=== PATIENT | female | born 1975 | race Hispanic/Latino ===

== ENCOUNTER 2019-01-08 03:45 | Emergency (ER) | payer OTHER ==
[2019-01-08] MEDS ORDERED: LIDOCAINE HCL 2% VISCOUS 15 ML UDCUP ONE (04:10)
[2019-01-08] MEDS ORDERED: MAG HYDROX/AL HYDROX/SIMETH ES 30 ML SUSP UDCUP ONE (04:10)
[2019-01-08] MEDS ORDERED: PANTOPRAZOLE SODIUM 40 MG TABLET.DR PO ONE (04:11)
== END 2019-01-08 04:32 | disposition home or self-care (01) ==
LOC: EDH 03:45
DX: B35.6 Tinea cruris (principal); R10.13 Epigastric pain; E07.9 Disorder of thyroid, unspecified; Z98.51 Tubal ligation status

== ENCOUNTER 2019-07-27 22:10 | Emergency (ER) | payer OTHER ==
[2019-07-27] MEDS ORDERED: MAG HYDROX/AL HYDROX/SIMETH ES 30 ML SUSP UDCUP ONE (23:20)
[2019-07-27] MEDS ORDERED: LIDOCAINE HCL 2% VISCOUS 15 ML UDCUP ONE (23:20)
[2019-07-27 23:22] LABS: RAPID GROUP A STREP NEGATIVE (NEGATIVE)
== END 2019-07-27 23:48 | disposition home or self-care (01) ==
LOC: EDH 22:10
DX: J06.9 Acute upper respiratory infection, unspecified (principal)
CPT/HCPCS: 87804; 87880

== ENCOUNTER 2020-04-22 09:05 | Emergency (ER) | payer SELFPAY ==
[2020-04-22] MEDS ORDERED: HYDROCODONE/ACETAMINOPHEN 5/325 MG TAB ONE (09:56)
== END 2020-04-22 10:54 | disposition home or self-care (01) ==
LOC: EDH 09:05
DX: M25.461 Effusion, right knee (principal)
CPT/HCPCS: 73562; 81025

== ENCOUNTER 2021-09-05 11:27 | Emergency (ER) | payer SELFPAY ==
[~2021-09-05] VITALS: Ht 160 cm; Wt 99.8 kg
[2021-09-05] MEDS ORDERED: D-ME1POW16 PO (15:41)
[2021-09-05 15:53] VITALS: BP 152/99
[2021-09-05] MEDS ORDERED: IBUPROFEN 800 MG TAB PO ONE (16:00)
[2021-09-05] MEDS ORDERED: APAP/CODEINE 120/12MG 5ML PO ONE (16:00)
== END 2021-09-05 16:12 | disposition home or self-care (01) ==
LOC: EDH 11:27
DX: J06.9 Acute upper respiratory infection, unspecified (principal); Z20.822 Contact with and (suspected) exposure to COVID-19; E66.9 Obesity, unspecified; Z68.39 Body mass index [BMI] 39.0-39.9, adult
CPT/HCPCS: 87635; 87804 ×2; 99283; C9803

== ENCOUNTER 2024-08-09 18:02 | Emergency (ER) | payer SELFPAY ==
[~2024-08-09] VITALS: Ht 160 cm; Wt 97.5 kg
[~2024-08-09 18:02] MED LIST: D-ME1POW16 PO
--- NOTE | 2024-08-09 18:31 | ERN ---
ED Note History of Present Illness Stated Complaint: DYSURIA, FREQUENCY Chief Complaint: Urinary Frequency Time Seen by MD: 18:05 Time Seen by Midlevel: 18:05 Dictation: The patient is a 48-year-old female with a history of hypothyroidism who presents to the emergency department with complaints of burning urination and suprapubic pain onset three days ago. Patient also reports she has been having some upper respiratory symptoms, reports dry cough, nasal congestion. Patient denies any nausea, vomiting, diarrhea, fevers, shortness of breath Allergies: Coded Allergies: No Known Drug Allergies (Unverified Allergy, Unknown, 07/28/19) Home Meds Active Scripts D-Methorphan/PE/Acetaminophen (Theraflu Ms Severe Cold Pckt) 1 Each Powd.pack, 1 EACH PO QID, #20 PACK Prov:PADMINI PALM 09/05/21 Past Medical History Past Medical History: No Pertinent History Additional Past Medical Hx: Obese Surgical History: None RN Note Reviewed/Agreed w/PFSH: Yes Review of System Dictation Constitutional: Negative for fever,chills, and weight loss Eyes: Negative for injury, pain,redness, and discharge ENT: Negative for injury,pain or swelling Cardiovascular: Negative for chest pain, palpitations, and edema Respiratory: Negative for shortness of breath, and wheezing, positive for cough Abdomen/GI: Negative for , nausea, vomiting, diarrhea, and constipation positive for abdominal pain Back: Negative for injury and pain : Negative for injury, bleeding and discharge positive for burning urination MS/Extremity: Negative for injury and deformity Skin: Negative for rash, and discoloration Neuro: Negative for headache, weakness, numbness, tingling, and seizure Psych: Negative for suicide ideation, homicidal ideation, and hallucinations Initial Vital Sign VS Vital Signs Date Time Temp Pulse Resp B/P (MAP) Pulse Ox O2 Delivery O2 Flow Rate FiO2 08/09/24 18:03 100.4 87 16 157/88 100 Room Air 0 08/09/24 19:23 21 Physical Exam Dictation Vital Signs reviewed General Appearance: Alert, oriented x 3, no acute distress, well developed, nourished. Head and Face: non-traumatic. Eyes: PERRL, pink conjunctivas, eyelid no trauma, anterior chamber with arcus senilis. Ears: Pinnas intact and no signs of trauma or erythema ear canals clear and no discharge TM no erythema Nose: No discharge, no bleeding. Oropharynx: Mouth normal, tongue pink. pharynx clear,no erythema, tonsils no exudates, no abscesses noted, mucous membrane moist Neck: Supple, non-tender, no thyromegaly, no masses, no JVD, no bruits Breast:Deferred Chest:No tenderness, no crepitus, no paradoxical movement, no retractions Lungs:Clear, well-ventilated, symmetric, no rales, no wheezing, no rhonchi, no stridor, good breath sounds bilaterally Heart: Regular rate, regular rhythm, no murmur, no gallops Vascular: no peripheral edema, Abdomen: Soft, positive bowel sounds, nondistended, no guarding, nontender, no rebound, no masses no hepatomegaly, no splenomegaly, no Pereira's sign, no hernias. Rectal: Deferred Genital: Deferred Neurological: Normal speech, motor function intact, sensory function intact Musculoskeletal: Neck nontender, full range of motion, back nontender, full r ce of motion, Extremities: nontender, full range of motion Skin: Color pink, dry, no turgor, no rash, no lacerations, no abrasions, no contusions. Lymphatic: Deferred Results (Laboratory/Radiology) Laboratory/Radiology Laboratory Tests Test 08/09/24 18:21 08/09/24 18:30 Urine Color YELLOW (YELLOW) Urine Appearance TURBID (CLEAR) Urine pH 6.0 (5.0-8.0) Urine Specific [place] 1.016 (1.001-1.031) Urine Protein 70 mg/dL (NEGATIVE) H Urine Glucose (UA) NEGATIVE mg/dL (NEGATIVE) Urine Ketones NEGATIVE mg/dL (NEGATIVE) Urine Occult Blood MODERATE (NEGATIVE) H Urine Nitrate NEGATIVE (NEGATIVE) Urine Bilirubin NEGATIVE mg/dL (NEGATIVE) Urine Urobilinogen 0.2 mg/dL (0.2-1.0) Urine Leukocyte Esterase 500 Emily/uL (NEGATIVE) H Urine RBC 51-100 /HPF (0-1) H Urine WBC TNTC /HPF (0-1) H Urine WBC Clumps (Auto) MANY /HPF (0-1) Urine Squamous Epithelial Cells MOD /HPF (0-2) Urine Transitional Epithelial Cells RARE /HPF (None Seen) Urine Bacteria RARE /HPF (None Seen) Urine HCG, Qualitative NEGATIVE (NEGATIVE) Influenza Type A Antigen Negative For Type A Influenza Type B Antigen Positive For Type B SARS-CoV-2 Antigen (Rapid) PRESUMPTIVE NEGATIVE Labs Reviewed?: Yes ED Course ED Course Orders Procedure Category Date Status Time Urinalysis Profile LAB 08/09/24 Complete 18:08 ,Urine Test LAB 08/09/24 Complete 18:08 Covid19 (Sars Antigen LAB 08/09/24 Complete Rapid) 18:23 Influenza Type A & B, LAB 08/09/24 Complete Rapid 18:23 Acetaminophen 500mg PHA 08/09/24 Complete Tab (Tylenol 500mg T 18:30 Culture Urine OMAR 08/09/24 In Process 18:43 Ceftriaxone 1g Vial PHA 08/09/24 Complete (Rocephine 1g Inj) 19:00 Phenazopyridine Hcl PHA 08/09/24 Complete 200 Mg Tab (Pyridium 19:00 Current Medications Medications (Trade) Dose Ordered Sig/Adeola Route PRN Reason Start Time Stop Time Status Last Admin Dose Admin Acetaminophen (TYLenol 500MG TAB) 1,000 mg ONCE ONCE PO 08/09/24 18:30 08/09/24 18:31 DC 08/09/24 19:13 Ceftriaxone Sodium (ROCEphine 1G INJ) 1 gm ONCE ONCE IM 08/09/24 19:00 08/09/24 19:01 DC 08/09/24 19:13 Phenazopyridine HCl (PYRIdium HCL 200 MG TAB) 200 mg ONCE ONCE PO 08/09/24 19:00 08/09/24 19:01 DC 08/09/24 19:13 Vital Signs Date Time Temp Pulse Resp B/P (MAP) Pulse Ox O2 Delivery O2 Flow Rate FiO2 08/09/24 19:23 100.0 85 16 150/85 98 Room Air* 0 21 08/09/24 18:03 100.4 87 16 157/88 100 Room Air 0 Medical Decision Making MDM The patient is a 48-year-old female with a history of hypothyroidism who presents to the emergency department with complaints of burning urination and suprapubic pain onset three days ago. Patient also reports she has been having some upper respiratory symptoms, reports dry cough, nasal congestion. Patient denies any nausea, vomiting, diarrhea, fevers, shortness of breath Urinalysis consistent for UTI. Patient received a dose of Rocephin and will be discharged on antibiotics. Patient also tested positive for flu B but symptoms have been going on for a week. Patient appears in no distress, nontoxic appearance agrees to be discharged. Differential diagnosis: UTI, COVID-19 infection, flu, hematuria Need for hospitalization: Patient does not meet criteria for hospitalization. There are no social concerns with this patient. DX & DISP Disposition: Discharge Departure Impression: Primary Impression: UTI (urinary tract infection) Additional Impression: Influenza B Condition: Stable Scripts Phenazopyridine HCl (Pyridium) 200 Mg Tablet 200 MG PO TID for painful urination, #10 TAB 0 Refills Prov: ALEXISLAST [facility] 08/09/24 Nitrofurantoin Monohyd/M-Cryst (Macrobid 100 mg Capsule) 100 Mg Capsule 1 CAP PO BID for 5 Days, #10 CAP 0 Refills Prov: ALEXISLAST [facility] 08/09/24 Additional Instructions: Please take antibiotics as prescribed. Please follow up with the primary doctor in 1-2 days. If symptoms worsen please return to ER. FOLLOW-UP WITH PRIMARY CARE PROVIDER IN 1 TO 2 DAYS. TAKE MEDICATIONS DIRECTED HERE IN THE EMERGENCY ROOM. OKAY TO CONTINUE HOME MEDICATIONS UNLESS OTHERWISE DISCUSSED DURING YOUR VISIT IN THE EMERGENCY ROOM TODAY. RETURN TO [facility] EMERGENCY ROOM IF SYMPTOMS WORSEN OR IF THERE IS NO IMPROVEMENT. CALL 911 IF YOU NEED IMMEDIATE ASSISTANCE. TAKE TYLENOL OR MOTRIN [id number] NEEDED AND IF NO CONTRAINDICATIONS ARE PRESENT. INCREASE ORAL HYDRATION. A WOUND CULTURE OR URINE CULTURE WAS ORDERED HERE IN THE EMERGENCY ROOM DEPARTMENT PLEASE FOLLOW-UP WITH PRIMARY CARE PROVIDER AND ADVISE THEM TO GET REPEAT PORTS FROM OUR FACILITY. IF YOU HAD ANY ELISSA WRAP/SPLINTS THAT WERE APPLIED HERE, PLEASE DO NOT REMOVE THEM UNTIL YOU SEE YOUR PRIMARY CARE OR SPECIALTY. Referrals: SELF,REFERRAL (PCP) Time of Disposition: 19:46 I have reviewed the case, and I agree with, Diagnosis and Plan FRANK ESPINOZALEN [employer] Aug 09, 2024 18:31
[2024-08-09 18:33] LABS: APPEARANCE,URINE TURBID (CLEAR); BILIRUBIN,URINE NEGATIVE (NEGATIVE); COLOR,URINE YELLOW (YELLOW); GLUCOSE, URINE (UA) NEGATIVE (NEGATIVE); KETONES,URINE NEGATIVE (NEGATIVE); LEUKOCYTE ESTERASE ,URINE 500 Leu/uL (NEGATIVE); NITRATE,URINE NEGATIVE (NEGATIVE); OCCULT BLOOD,URINE MODERATE (NEGATIVE); PROTEIN,URINE 70 mg/dL (NEGATIVE); UROBILINOGEN,URINE 0.2 mg/dL (0.2-1.0)
[2024-08-09 18:36] LABS: HCG,QUALITATIVE URINE NEGATIVE (NEGATIVE)
[2024-08-09 18:43] LABS: ADD UA MICROSCOPIC YES
[2024-08-09 18:46] LABS: BACTERIA,URINE RARE /HPF (None Seen); MUCUS,URINE RARE LPF (None Seen); RBC,URINE 51-100 /HPF (0-1); SQUAMOUS EPITHELIAL CELL,UR MOD /HPF (0-2); TRANSITIONAL EPI CELLS,URINE RARE /HPF (None Seen); WBC CLUMP MANY /HPF (0-1); WBC,URINE TNTC /HPF (0-1)
[2024-08-09 19:02] LABS: COVID19 (SARS ANTIGEN RAPID) PRESUMPTIVE NEGATIVE (NEGATIVE); INFLUENZA TYPE A Negative For Type A (NEGATIVE)
[2024-08-09] MEDS: PHENAZOpyridine HCL 200 MG TAB 200 MG TABLET PO ONE (19:13)
[2024-08-09] MEDS: cefTRIAXone 1G VIAL IM ONE (19:13)
[2024-08-09] MEDS: acetaMINOPHEN 500 MG TABLET PO ONE (19:13)
[2024-08-09 19:23] VITALS: BP 150/85; PULSE 85; RESP 16; TEMP 100.1; O2SAT 98
[2024-08-09 19:24] LABS: INFLUENZA TYPE B Positive For Type B (NEGATIVE)
[2024-08-09] MEDS ORDERED: NITR100C4 PO (19:47)
[2024-08-09] MEDS ORDERED: PHEN-776 PO (19:47)
== END 2024-08-09 20:00 | disposition home or self-care (01) ==
LOC: EDH 18:02
DX: N39.0 Urinary tract infection, site not specified (principal); J10.1 Influenza due to other identified influenza virus with other respiratory manifestations; E66.9 Obesity, unspecified; Z68.38 Body mass index [BMI] 38.0-38.9, adult; Z20.822 Contact with and (suspected) exposure to COVID-19
CPT/HCPCS: 99283; 87426; 87086 ×2; 87186; 87804 ×2; 81001; 81025; 96372; J0696